=== PATIENT | female | born 1945 | race Caucasian/White ===

== ENCOUNTER → 2016-11-20 | Outpatient (CLI) | payer OTHER, MEDICARE ==
[~2016-11-20] MED LIST: ATROPO OPR; GENT0.3S6 OP; METR1GEL3 TOP; MTRG45 TOP; PRED1SUS17 OPR
[2016-11-20 10:47] LABS: BASO % 0.2 %; BASO ABS # 0.01 K/uL (0-0.2); COMPLETE YES; EOS % 3.3 %; HEMATOCRIT 42.7 % (37-47); IG% 0.2 %; LYMPH % 26.7 %; LYMPH ABS # 1.31 K/uL (1.2-3.4); MEAN CELL VOLUME 95.7 fL (80-100); MEAN CORPUSCULAR HEMOGLOBIN 31.8 pg (25-34); MEAN CORPUSCULAR HGB CONC 33.3 g/dl (32-36); MEAN PLATELET VOLUME 10.6 fL (7.4-10.4); MONO % 8.4 %; NEUT % 61.2 %; PLATELET COUNT 204 K/uL (130-400); RED BLOOD COUNT 4.46 M/uL (4.2-5.4); WHITE BLOOD COUNT 4.91 K/uL (4.8-10.8)
[2016-11-20 10:56] LABS: BLOOD UREA NITROGEN 12 mg/dl (7-18); BUN/CREATININE RATIO 15.9 (10-20); CALCIUM 9.7 mg/dl (8.5-10.1); CARBON DIOXIDE 27 mmol/L (21-32); CHLORIDE 106 mmol/L (98-107); CREATININE 0.78 mg/dl (0.60-1.20); GLUCOSE 92 mg/dl (70-99); POTASSIUM 3.9 mmol/L (3.5-5.1); SODIUM 140 mmol/L (136-145)
== END | disposition home or self-care (01) ==
LOC: C.LAB1850 09:09
PROVIDERS: ATTEND Ophthalmology
DX: H35.373 Puckering of macula, bilateral (principal)

== ENCOUNTER 2016-12-07 16:17 | Emergency (ER) | payer OTHER, MEDICARE ==
[~2016-12-07] VITALS: Ht 165.1 cm; Wt 49.3 kg
[~2016-12-07 16:17] MED LIST changes: -ATROPO OPR; -GENT0.3S6 OP; -MTRG45 TOP; -PRED1SUS17 OPR
[2016-12-07 16:19] VITALS: TEMP 36.5; Ht 165.1 cm; Wt 49.3 kg
[2016-12-07] MEDS ORDERED: SODIUM CHLORIDE 0.9% 1000ML 1,000 ML IV STA (16:45)
--- NOTE | 2016-12-07 16:45 | EMERGENCY ROOM VISIT NOTE ---
History Report prepared by David: Glenn Wasserman Under the Supervision of: Dr. Olaf Saenz M.D. First contact with patient: 16:25 Chief Complaint: TACHYCARDIA Stated Complaint: TACHYCARDIA History of Present Illness The patient is a 71 year old female who presents to the Emergency Room with complaints of intermittent dizziness starting a few days ago. She also complains of a mild headache. She had a right eye epiretinal membrane surgery last week. She started taking Atropine eye drops last week. Since then, she has been having dizziness and a mild headache. She read the medication label and read that one of the side effects of Atropine is hypertension. She checked her blood pressure at home and it was 132 systolic. She states that she became scared and contacted [facility] who referred her to the Emergency Room. She denies chest pain, or any other complaints. She has a history of heart disease. She denies any history of stroke. She has a history of migraine headaches which come with dizziness. She reports some similar symptoms as her migraine headache today. Source of History: patient Onset: a few days ago Position: other (global) Quality: other (dizziness) Timing: other (persistent) Associated Symptoms: + headache, No chest pain Review of Systems See HPI for pertinent positives & negatives. A total of 10 systems reviewed and were otherwise negative. Past Medical & Surgical Medical Problems: (1) Adhesive capsulitis (2) Mitral valve prolapse Surgical Problems: (1) History of cholecystectomy (2) History of hysterectomy Family History Diabetes mellitus Social History Smoking Status: Never Smoker Drug Use: none Marital Status: single Housing Status: lives with family Occupation Status: retired Current/Historical Medications Scheduled Atropine Sulfate (Ophthalmic) (Atropine Sulfate Oph), 1 DROP OPR BID Gentamicin Sulfate (Ophth) (Gentak), 1 DROPS OP QID Metronidazole HCl (Metronidazole), 1 DOSE TOP BID Prednisolone Acetate (Ophth) (Prednisolone Acetate), 1 DROP OPR QID Allergies Coded Allergies: Vancomycin (Unverified Allergy, Severe, ITCHY SCALP, 12/07/16) Penicillins (Unverified Allergy, Mild, 12/07/16) Sulfamethoxazole w/Trimethoprim (Unverified Allergy, Mild, RASH, 12/07/16) Amoxicillin (Unverified Allergy, Unknown, RASH, 12/07/16) Sulfa Antibiotics (Unverified Allergy, Unknown, RASH, 12/07/16) Uncoded Allergies: STEROIDS (Adverse Reaction, Mild, RASH, 08/16/09) Physical Exam Vital Signs Date Time Temp Pulse Resp B/P (MAP) Pulse Ox O2 Delivery O2 Flow Rate FiO2 12/07/16 17:44 76 18 138/69 100 Room Air 12/07/16 17:00 78 18 133/67 100 Room Air 12/07/16 16:59 100 Room Air 12/07/16 16:40 94 12/07/16 16:30 Room Air 12/07/16 16:19 36.5 110 20 134/51 100 Room Air Physical Exam GENERAL: Patient is a healthy-appearing well-nourished HEAD: Normocephalic atraumatic EYES: Ocular movements intact pupils equal and react to light OROPHARYNX mucous membranes are moist no exudates present no erythema or edema present NECK: Supple no nuchal rigidity CHEST: Good equal expansion LUNGS: Clear and equal to auscultation CARDIAC: Normal S1 and S2 ABDOMEN: Soft nontender no guarding BACK: No CVA tenderness EXTREMITIES: No pain upon palpation normal muscle strength in all groups no clubbing cyanosis or edema NEURO: Patient is following commands and answering questions appropriately. Alert and oriented x3 Cranial Nerves 2-12 grossly intact Medical Decision & Procedures Laboratory Results 12/07/16 16:35 Red Blood Count 4.63, Mean Corpuscular Volume 94.6, Mean Corpuscular Hemoglobin 31.5, Mean Corpuscular Hemoglobin Concent 33.3, Mean Platelet Volume 10.5, Neutrophils (%) (Auto) 56.5, Lymphocytes (%) (Auto) 31.3, Monocytes (%) (Auto) 10.0, Eosinophils (%) (Auto) 1.8, Basophils (%) (Auto) 0.2, Neutrophils # (Auto ) 3.44, Lymphocytes # (Auto) 1.90, Monocytes # (Auto) 0.61, Eosinophils # (Auto ) 0.11, Basophils # (Auto) 0.01 12/07/16 16:35 Test 12/07/16 16:35 White Blood Count 6.08 K/uL (4.8-10.8) Red Blood Count 4.63 M/uL (4.2-5.4) Hemoglobin 14.6 g/dL (12.0-16.0) Hematocrit 43.8 % (37-47) Mean Corpuscular Volume 94.6 fL (80-100) Mean Corpuscular Hemoglobin 31.5 pg (25-34) Mean Corpuscular Hemoglobin Concent 33.3 g/dl (32-36) Platelet Count 212 K/uL (130-400) Mean Platelet Volume 10.5 fL (7.4-10.4) Neutrophils (%) (Auto) 56.5 % Lymphocytes (%) (Auto) 31.3 % Monocytes (%) (Auto) 10.0 % Eosinophils (%) (Auto) 1.8 % Basophils (%) (Auto) 0.2 % Neutrophils # (Auto) 3.44 K/uL (1.4-6.5) Lymphocytes # (Auto) 1.90 K/uL (1.2-3.4) Monocytes # (Auto) 0.61 K/uL (0.11-0.59) Eosinophils # (Auto) 0.11 K/uL (0-0.5) Basophils # (Auto) 0.01 K/uL (0-0.2) RDW Standard Deviation 42.4 fL (36.4-46.3) RDW Coefficient of Variation 12.4 % (11.5-14.5) Immature Granulocyte % (Auto) 0.2 % Immature Granulocyte # (Auto) 0.01 K/uL (0.00-0.02) Anion Gap 10.0 mmol/L (3-11) Est Creatinine Clear Calc Drug Dose 50.4 ml/min Estimated GFR () 84.6 Estimated GFR (Non- 73.0 BUN/Creatinine Ratio 17.7 (10-20) Calcium Level 9.9 mg/dl (8.5-10.1) Total Bilirubin 0.4 mg/dl (0.2-1) Direct Bilirubin < 0.1 mg/dl (0-0.2) Aspartate Amino Transf (AST/SGOT) 20 U/L (15-37) Alanine Aminotransferase (ALT/SGPT) 26 U/L (12-78) Alkaline Phosphatase 72 U/L (45-117) Total Creatine Kinase 77 U/L (26-192) Creatine Kinase MB 1.2 ng/ml (0.5-3.6) Creatine Kinase MB Ratio 1.6 (0-3.0) Troponin I < 0.015 ng/ml (0-0.045) Total Protein 7.8 gm/dl (6.4-8.2) Albumin 3.9 gm/dl (3.4-5.0) Lipase 158 U/L (73-393) Labs reviewed by ED physician. Medications Administered Medications (Trade) Dose Ordered Sig/Rocío Route Start Time Stop Time Status Last Admin Dose Admin Sodium Chloride 1,000 ml @ 999 mls/hr Q1H1M STAT IV 12/07/16 16:45 12/07/16 17:45 DC 12/07/16 16:45 999 MLS/HR ECG Indication: other (Dizziness) Rate (beats per minute): 77 Rhythm: normal sinus Findings: no acute ischemic change, no ectopy ED Course 1625: Past medical records reviewed. The patient was evaluated in room A10. A complete history and physical examination was performed. 1645: Sodium Chloride 1000 ml @ 999 mls/hr IV 1745: Upon reexamination the patient is resting comfortably. I discussed results and treatment plan with the patient. She verbalizes agreement and understanding. The patient is ready for discharge. Medical Decision Differential diagnosis: Etiologies such as benign positional vertigo, dehydration, hypovolemia, anemia, tumor, infection, hypoglycemia, electrolyte abnormalities, cardiac sources, intracerebral event, toxicologic, neurologic, as well as others were entertained. This is a 71-year-old female who presents emergency department complaining of tachycardia and hypertension however upon arrival to the emergency department the patient is not tachycardic and is not hypertensive. The patient is concerned that she feels her atropine drops are causing the hypertension. I stressed to the patient she should continue taking drops however she is not going to. She has a normal CBC normal renal profile normal liver profile normal lipase. I do feel that the patient as well as to be discharged home for follow-up with her primary care physician. Patient was in agreement with the treatment plan. Medication Reconcilliation Current Medication List: was personally reviewed by me Blood Pressure Screening Patient's blood pressure: Elevated blood pressure Blood pressure disposition: Referred to PCP Impression Primary Impression: Hypertension Scribe Attestation The scribe's documentation has been prepared under my direction and personally reviewed by me in its entirety. I confirm that the note above accurately reflects all work, treatment, procedures, and medical decision making performed by me. Departure Information Dispostion Home / Self-Care Referrals RV. Macdonald MD (PCP) Forms HOME CARE DOCUMENTATION FORM, IMPORTANT VISIT INFORMATION, WORK / SCHOOL INSTRUCTIONS Patient Instructions Hypertension Dc, My [facility] Additional Instructions Follow up with DR Oquendo's office You have been examined and treated today on an emergency basis only. This is not a substitute for, or an effort to provide, complete comprehensive medical care. It is impossible to recognize and treat all injuries or illnesses in a single emergency department visit. It is therefore important that you follow up closely with Dr Oquendo. Call as soon as possible for an appointment. Thank you for your time and consideration. I look forward to speaking with you again soon. Please don't hesitate to call us if you have any questions. Problem Qualifiers Primary Impression: Hypertension Hypertension type: unspecified Qualified Codes: I10 - Essential (primary) hypertension
[2016-12-07] MEDS ORDERED: PRED1SUS17 OPR (16:48)
[2016-12-07] MEDS ORDERED: ATROPO OPR (16:48)
[2016-12-07] MEDS ORDERED: GENT0.3S6 OP (16:48)
[2016-12-07] MEDS ORDERED: MTRG45 TOP (16:48)
[2016-12-07 16:59] VITALS: O2SAT 100
[2016-12-07 17:00] LABS: BASO % 0.2 %; BASO ABS # 0.01 K/uL (0-0.2); COMPLETE YES; EOS % 1.8 %; HEMATOCRIT 43.8 % (37-47); IG% 0.2 %; LYMPH % 31.3 %; MEAN CELL VOLUME 94.6 fL (80-100); MEAN CORPUSCULAR HEMOGLOBIN 31.5 pg (25-34); MEAN CORPUSCULAR HGB CONC 33.3 g/dl (32-36); MEAN PLATELET VOLUME 10.5 fL (7.4-10.4); NEUT % 56.5 %; PLATELET COUNT 212 K/uL (130-400); RED BLOOD COUNT 4.63 M/uL (4.2-5.4); WHITE BLOOD COUNT 6.08 K/uL (4.8-10.8)
[2016-12-07 17:09] LABS: BLOOD UREA NITROGEN 15 mg/dl (7-18); BUN/CREATININE RATIO 17.7 (10-20); CALCIUM 9.9 mg/dl (8.5-10.1); CARBON DIOXIDE 26 mmol/L (21-32); CHLORIDE 103 mmol/L (98-107); CREATININE 0.82 mg/dl (0.60-1.20); GLUCOSE 88 mg/dl (70-99); POTASSIUM 3.7 mmol/L (3.5-5.1); SODIUM 139 mmol/L (136-145)
[2016-12-07 17:10] LABS: ALT/SGPT 26 U/L (12-78)
[2016-12-07 17:15] LABS: ALKALINE PHOSPHATASE 72 U/L (45-117); AST/SGOT 20 U/L (15-37); CKMB/CK RATIO 1.6 (0-3.0)
[2016-12-07 17:44] VITALS: BP 138/69; PULSE 76; O2SAT 100
== END 2016-12-07 17:45 | disposition home or self-care (01) ==
LOC: C.EDB 16:18 → C.EDA 17:45
DX: I10 Essential (primary) hypertension (principal); I34.1 Nonrheumatic mitral (valve) prolapse; Z90.710 Acquired absence of both cervix and uterus; Z90.49 Acquired absence of other specified parts of digestive tract; Z88.0 Allergy status to penicillin; Z88.1 Allergy status to other antibiotic agents; Z88.2 Allergy status to sulfonamides; Z83.3 Family history of diabetes mellitus

== ENCOUNTER → 2017-02-19 | Outpatient (CLI) | payer OTHER, MEDICARE ==
[~2017-02-19] MED LIST changes: +ATROPO OPR; +GENT0.3S6 OP; -METR1GEL3 TOP; +MTRG45 TOP; +PRED1SUS17 OPR
[2017-02-19 17:25] LABS: MANUAL MICROSCOPIC REQUIRED? NO; REVIEW REQ? NO; URINE APPEARANCE CLEAR (CLEAR); URINE BILIRUBIN NEG (NEG); URINE COLOR YELLOW; URINE EPITHELIAL CELL AUTO 0-5 /lpf (0-5); URINE NITRITE NEG (NEG); URINE SPECIFIC GRAVITY 1.014 (1.000-1.030); UROBILINOGEN NEG (NEG); ZZUR CULT IF INDIC CLEAN CATCH YES
== END | disposition home or self-care (01) ==
LOC: C.LAB 16:57
PROVIDERS: ATTEND Internal Medicine
DX: R39.9 Unspecified symptoms and signs involving the genitourinary system (principal)

== ENCOUNTER → 2017-03-01 | Outpatient (CLI) | payer OTHER, MEDICARE ==
[2017-03-01 15:54] LABS: URINE BILIRUBIN NEG (NEG); URINE COLOR YELLOW; URINE EPITHELIAL CELL AUTO 0-5 /lpf (0-5); URINE NITRITE NEG (NEG); UROBILINOGEN NEG (NEG)
[2017-03-01 15:55] LABS: MANUAL MICROSCOPIC REQUIRED? NO; REVIEW REQ? NO; URINE APPEARANCE CLEAR (CLEAR)
== END | disposition home or self-care (01) ==
LOC: C.LAB 14:23
PROVIDERS: ATTEND Internal Medicine
DX: R39.9 Unspecified symptoms and signs involving the genitourinary system (principal)

== ENCOUNTER → 2017-03-08 | Outpatient (CLI) | payer OTHER, MEDICARE ==
[2017-03-08 16:41] LABS: BASO % 0.2 %; BASO ABS # 0.01 K/uL (0-0.2); COMPLETE YES; EOS % 0.4 %; HEMATOCRIT 41.9 % (37-47); LYMPH % 32.2 %; LYMPH ABS # 1.63 K/uL (1.2-3.4); MEAN CELL VOLUME 94.6 fL (80-100); MEAN CORPUSCULAR HEMOGLOBIN 31.6 pg (25-34); MEAN CORPUSCULAR HGB CONC 33.4 g/dl (32-36); MEAN PLATELET VOLUME 10.9 fL (7.4-10.4); MONO % 7.9 %; NEUT % 59.3 %; PLATELET COUNT 206 K/uL (130-400); RED BLOOD COUNT 4.43 M/uL (4.2-5.4); WHITE BLOOD COUNT 5.06 K/uL (4.8-10.8)
[2017-03-08 16:47] LABS: PROTHROMBIN TIME (PATIENT) 10.3 SECONDS (9.0-12.0)
== END | disposition home or self-care (01) ==
LOC: C.LAB1850 14:37
PROVIDERS: ATTEND Internal Medicine
DX: S20.20XA Contusion of thorax, unspecified, initial encounter (principal); X58.XXXA Exposure to other specified factors, initial encounter